=== PATIENT | female | born 1995 | race Caucasian/White ===

== ENCOUNTER 2017-12-22 00:25 | Emergency (ER) | payer MEDICAID, OTHER | END 2017-12-22 00:50 | disposition short-term general hospital (02) | LOC: E/R 00:25 | DX: S51.811A Laceration without foreign body of right forearm, initial encounter (principal); W25.XXXA Contact with sharp glass, initial encounter; Y92.9 Unspecified place or not applicable | CPT/HCPCS: 99285-25; Z7502 ==